=== PATIENT | female | born 1970 | race Hispanic/Latino ===

== ENCOUNTER 2021-02-11 10:05 | Emergency (ER) | payer OTHER ==
[~2021-02-11] VITALS: Ht 147.3 cm; Wt 71.2 kg
[2021-02-11 10:32] LABS: HEMATOCRIT 43.8 % (34.2-44.1); HEMOGLOBIN 14.4 g/dL (12.0-16.0); LYMPHOCYTES # (AUTO) 0.8 (1.0-3.2); LYMPHOCYTES % 17.2 % (18.0-39.1); MEAN CORPUSCULAR HGB CONC 32.9 g/dL (31-35); MEAN CORPUSCULAR VOLUME 88.1 fL (81-99); MONOCYTES # (AUTO) 0.5 (0.2-0.8); MONOCYTES % 11.9 % (4.4-11.3); NEUTROPHILS # (AUTO) 3.1 (2.1-6.9); NEUTROPHILS % 70.2 % (38.7-80.0); PLATELET COUNT 154 x10e3/uL (140-360); RED BLOOD COUNT 4.97 x10e6/uL (3.6-5.1); RED CELL DISTRIBUTION WIDTH 13.1 % (11.7-14.4)
[2021-02-11 10:42] LABS: INR 0.93; PROTHROMBIN TIME 13.2 seconds (11.9-14.5)
[2021-02-11 10:43] LABS: PARTIAL THROMBOPLASTIN TIME 35.7 seconds (23.8-35.5)
[2021-02-11 10:46] LABS: CLARITY,URINE CLEAR (CLEAR); COLOR,URINE YELLOW (YELLOW)
[2021-02-11 10:47] LABS: KETONES,URINE NEGATIVE (NEGATIVE); LEUKOCYTE ESTERASE ,URINE NEGATIVE (NEGATIVE); NITRITE,URINE NEGATIVE (NEGATIVE); PROTEIN,URINE DIPSTICK 2+ (NEGATIVE); URINE UROBILINOGEN 0.2 mg/dL (0.2 - 1)
[2021-02-11 10:51] LABS: ALBUMIN 3.5 g/dL (3.5-5.0); ALBUMIN/GLOBULIN RATIO 1.1 (0.8-2.0); ANION GAP 14.1 mmol/L (8-16); CALCIUM 8.6 mg/dL (8.4-10.2); CREATININE, SERUM 0.81 mg/dL (0.57-1.11); POTASSIUM 4.1 mmol/L (3.5-5.1)
[2021-02-11 10:55] LABS: BACTERIA,URINE MANY /HPF; EPITHELIAL CELLS,URINE FEW /LPF
[2021-02-11 10:57] LABS: CREATINE KINASE MB 0.3 ng/mL (0-5.0)
== END 2021-02-11 12:31 | disposition home or self-care (01) ==
LOC: MERGE 10:07 → ER 10:07
DX: U07.1 COVID-19 (principal); R55 Syncope and collapse; W17.89XA Other fall from one level to another, initial encounter; Y92.002 Bathroom of unspecified non-institutional (private) residence as the place of occurrence of the external cause; I10 Essential (primary) hypertension; E11.9 Type 2 diabetes mellitus without complications; E78.5 Hyperlipidemia, unspecified; E03.9 Hypothyroidism, unspecified
CPT/HCPCS: 36415; 70450; 71045; 72125; 80053; 81001; 82550; 82553; 83880; 84484; 85025; 85610; 85730; 93005; 99284